=== PATIENT | male | born 1970 | race Caucasian/White ===

== ENCOUNTER 2019-05-21 04:26 | Emergency (ER) | payer SELFPAY ==
[2019-05-21] MEDS ORDERED: Ketorolac 30 MG/ML SDV IM ONE (04:43)
--- NOTE | 2019-05-21 04:48 | EDM.PDOC ---
ED HPI GENERAL MEDICAL PROBLEM - General Chief Complaint: Upper Extremity Injury/Pain Stated Complaint: LT WRIST INJURY Time Seen by Provider: 05/21/19 04:46 Source of Information: Reports: Patient History Limitations: Reports: No Limitations - History of Present Illness INITIAL COMMENTS - FREE TEXT/NARRATIVE: Patient is a 49-year-old male no significant past medical history presenting with a chief complaint of left wrist pain. Patient states he tripped and fell with his hand outstretched yesterday around 1 PM. Patient reports pain. Does not radiate. Pain is worse with movement. Unrelieved with ibuprofen. Denies numbness tingling. Denies any other injury. Pmhx: None Pshx: None Family Hx: noncontributory Smoking history? no Etoh use? none Drug use? none Review of systems performed otherwise negative I have reviewed the triage vital signs Const: Well nourished, well developed, appears stated age Eyes: PERRL, no conjunctival injection HENT: NCAT, Neck supple without meningismus RESP: CTAB, Unlabored respiratory effort MSK: Swelling to the dorsum of the left wrist without ecchymosis. No deformity noted. Strong bilateral radial pulses. No scaphoid tenderness. Neurovascular intact. Skin: Warm, dry. 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 Sensation and motor function of extremities grossly intact. Psych: Appropriate mood and affect Assessment and plan: Patient is a 49-year-old male presenting with left wrist pain. He had mild swelling but no deformities. An x-ray was ordered to rule out fracture. X-ray was negative for acute fracture. Given level of pain and swelling patient benefit from a wrist brace and patient was fitted for a wrist brace in the emergency department. Patient given education regarding anti-inflammatory medications and return precautions. I have low suspicion for a scaphoid fracture at this he did not have tenderness there. Instructed the patient to follow-up with his primary care physician. Left Wrist Pain Score (Numeric/FACES): 10 - Related Data Allergies Allergy/AdvReac Type Severity Reaction Status Date / Time meperidine [From Demerol] Allergy Other Verified 05/21/19 04:44 Home Meds: Home Meds Naproxen [Naprosyn] 375 mg PO BID #30 tab 05/21/19 [Rx] Review of Systems - Review of Systems Review Of Systems: See Below ED EXAM, GENERAL - Physical Exam Exam: See Below Course - Vital Signs Last Recorded V/S: Last Vital Signs Temp 35.8 C L 05/21/19 04:39 Pulse 87 05/21/19 04:39 Resp 20 05/21/19 04:39 BP 124/96 H 05/21/19 04:39 Pulse Ox 97 05/21/19 04:39 - Orders/Labs/Meds Orders: Active Orders 24 hr Category Date Time Status DME for Discharge [COMM] Stat Oth 05/21/19 05:06 Ordered Meds: Medications Discontinued Medications Generic Name Dose Route Start Last Admin Trade Name Jignesh PRN Reason Stop Dose Admin Ketorolac Tromethamine 30 mg 05/21/19 04:43 05/21/19 05:00 Toradol IM 05/21/19 04:44 30 mg ONETIME ONE Administration Departure - Departure Time of Disposition: 05:05 Disposition: Home, Self-Care 01 Clinical Impression: Sprain of wrist, left - Discharge Information Prescriptions: Naproxen [Naprosyn] 375 mg PO BID #30 tab Instructions: Wrist Sprain, Adult Referrals: PCP,None [Primary Care Provider] - Forms: ED Department Discharge Additional Instructions: The following information is given to patients seen in the emergency department who are being discharged to home. This information is to outline your options for follow-up care. We provide all patients seen in our emergency department with a follow-up referral. The need for follow-up, as well as the timing and circumstances, are variable depending upon the specifics of your emergency department visit. If you don't have a primary care physician on staff, we will provide you with a referral. We always advise you to contact your personal physician following an emergency department visit to inform them of the circumstance of the visit and for follow-up with them and/or the need for any referrals to a consulting specialist. The emergency department will also refer you to a specialist when appropriate. This referral assures that you have the opportunity for follow-up care with a specialist. All of these measure are taken in an effort to provide you with optimal care, which includes your follow-up. Under all circumstances we always encourage you to contact your private physician who remains a resource for coordinating your care. When calling for follow-up care, please make the office aware that this follow-up is from your recent emergency room visit. If for any reason you are refused follow-up, please contact the [facility] Emergency Department at and asked to speak to the emergency department charge nurse. Sepsis Event Note - Evaluation Sepsis Screening Result: No Definite Risk - Focused Exam Vital Signs: Vital Signs Temp Pulse Resp BP Pulse Ox 05/21/19 04:39 35.8 C L 87 20 124/96 H 97 Date Exam was Performed: 05/21/19 Time Exam was Performed: 05:08 - My Orders Last 24 Hours: My Active Orders 05/21/19 05:06 DME for Discharge [COMM] Stat - Assessment/Plan Last 24 Hours: My Active Orders 05/21/19 05:06 DME for Discharge [COMM] Stat
--- NOTE | 2019-05-21 05:03 | CR ---
INDICATION: Wrist pain following fall TECHNIQUE: Wrist radiograph 3 views left COMPARISON: None FINDINGS: Bone: There is a corticated ossicle measuring 3 mm the dorsal aspect of the wrist which may be due to remote injury. Widening of the scapholunate ligament is present may be due to chronic injury to the scapholunate ligament. Joint: Mild osteoarthritis of the radiocarpal joint is present. Soft tissue: Moderate dorsal soft tissue swelling over the wrist is noted. No radiopaque foreign bodies are seen. IMPRESSION: 1. No acute osseous injuries or abnormalities are noted. Dictated by Mahesh Posadas MD @ 05/21/2019 5:01:36 AM Dictated by: Mahesh Posadas MD @ 05/21/2019 05:01:47 (Electronically Signed)
== END 2019-05-21 05:32 | disposition home or self-care (01) ==
LOC: MW.ED 04:26
DX: S63.502A Unspecified sprain of left wrist, initial encounter (principal); W01.0XXA Fall on same level from slipping, tripping and stumbling without subsequent striking against object, initial encounter
CPT/HCPCS: 73110; 96372; 99283; J1885; 29125